=== PATIENT | female | born 1980 | race African-American/Black ===

== ENCOUNTER 2019-07-17 22:41 | Emergency (ER) | payer BC, OTHER ==
[2019-07-17 22:47] VITALS: TEMP 99.2; BMI 26.4
--- NOTE | 2019-07-18 01:05 | PDOC ---
Documentation entered by Irving Hernandez SCRIBE, acting as scribe for Thomas Villalpando MD. Thomas Villalpando MD: This documentation has been prepared by the David merritt Daniel, SCRIBE, under my direction and personally reviewed by me in its entirety. I confirm that the documentation accurately reflects all work, treatment, procedures, and medical decision making performed by me. History of Present Illness - General Chief Complaint: Respiratory Stated Complaint: COLD SYMPTOMS Time Seen by Provider: 07/18/19 00:13 History Source: Patient Exam Limitations: No Limitations - History of Present Illness Initial Comments: 07/18/19 00:46 The patient is a 38 year old female with a past medical history of prior UTIs and mild anemia here today for evaluation of headache and suprapubic pain. The patient reports that she has had a frontal headache worse with head movement, sinus congestion, cough, low back pain, chest pain (secondary to cough), suprapubic pain, subjective fevers 4 days. She reports her headache improves with ibuprofen and states that when she has her back pain she has to pee after. Patient denies headache, vision changes, numbness/tingling/ewakness, lightheadedness. Denies chills. Denies shortness of breath. Denies nausea, vomiting, diarrhea. Allergies: NKDA, shrimp PCP: Dr. Joseluis Booth ([facility]) Past History - Past Medical History Allergies/Adverse Reactions: Allergies Allergy/AdvReac Type Severity Reaction Status Date / Time No Known Drug Allergies Allergy Verified 07/17/19 22:47 shrimp Allergy Verified 07/17/19 22:47 Home Medications: Ambulatory Orders NK [No Known Home Medication] 04/02/16 Anemia: Yes Asthma: Yes ( A CHILD) COPD: No - Psycho Social/Smoking Cessation Hx Smoking History: Never smoked Hx Alcohol Use: Yes (OCCAS) Drug/Substance Use Hx: No Substance Use Type: Alcohol Review of Systems - Review of Systems Able to Perform ROS?: Yes Comments:: 07/18/19 00:47 CONSTITUTIONAL: +subjective fever. +diaphoresis. No reported: Chills, Generalized Weakness, Malaise, Loss of Appetite HEENT: +nasal congestion. No reported: Rhinorrhea, Throat Pain, Throat Swelling, Difficulty Swallowing, Mouth Swelling, Ear Pain, Eye Pain, Visual Changes CARDIOVASCULAR: No reported: Chest Pain, Syncope, Palpitations, Irregular Heart Rate, Lightheadedness, Peripheral Edema RESPIRATORY: +cough No reported: Shortness of Breath, SOB with Exertion, Orthopnea, Wheezing, Stridor, Hemoptysis GASTROINTESTINAL: +suprapubic pain. No reported: Abdominal Distension, Nausea, Vomiting, Diarrhea, Constipation, Melena, Hematochezia GENITOURINARY: No reported: Dysuria, Frequency, Urgency, Hesitancy, Flank Pain, Genital Pain MUSCULOSKELETAL: +low back pain. No reported: Myalgia, Arthralgia, Joint Swelling, Neck Pain SKIN: No reported: Rash, Itching, Pallor HEMEATOLOGIC/IMMUNOLOGIC: No reported: Easy Bleeding, Easy Bruising, Lymphadenopathy, Frequent infections ENDOCRINE: No reported: Unexplained Weight Gain, Unexplained Weight Loss, Heat Intolerance , Cold Intolerance NEUROLOGIC: No reported: Headache, Focal Weakness, Paresthesias, Vertigo, Lightheadedness, Unsteady Gait, Seizure, Mental Status Changes, Incontinence PSYCHIATRIC: No reported: Anxiety, Depression *Physical Exam - Vital Signs Last Vital Signs Temp Pulse Resp BP Pulse Ox 99.2 F 97 H 18 120/64 99 07/17/19 22:43 07/17/19 22:43 07/17/19 22:43 07/17/19 22:43 07/17/19 22:43 - Physical Exam 07/18/19 00:48 GENERAL: The patient is awake, alert, and fully oriented, Nontoxic - in no acute distress. HEAD: Normocephalic, atraumatic. EYES: extraocular movements intact, sclera anicteric, conjunctiva clear. ENT: Normal voice, Moist mucous membranes. NECK: Normal range of motion, supple LUNGS: Breath sounds equal, clear to auscultation bilaterally. No wheezes, no rhonchi, no rales. HEART: Regular rate and rhythm, without murmur, rub or gallop. ABDOMEN: Soft, nontender, No guarding, no rebound.No CVA tenderness EXTREMITIES: Normal range of motion, no edema. No cyanosis. No erythema, or tenderness. BACK: mild lowe bcK TENDERNESS NEUROLOGICAL: No facial assymetry, Normal speech, PSYCH: Normal mood, normal affect. SKIN: Warm, Dry, normal turgor Medical Decision Making - Medical Decision Making 07/18/19 00:55 38-year-old female presenting with URI-like symptoms, as well as mild dysuria, and lower back pain without any CVA tenderness. We will give the patient Sudafed for her congestion. No clinical signs of meningitis or acute headache. Will obtain a UA to rule out UTI there is no signs of CVA tenderness to suggest a pyelonephritis her pain is lower may be muscular in nature 07/18/19 01:44 The patient's urine is negative for UTI there are some ketones likely secondary to starvation as patient has not eaten. There is no signs of glucosuria to suggest DKA. Will discharge patient with outpatient follow-up Return precautions were discussed I discussed the physical exam findings, ancillary test results and final diagnoses with the patient. I answered all of the patient's questions. The patient was satisfied with the care received and felt comfortable with the discharge plan and treatment plan. The patient will call their primary care physician within 24 hours to arrange follow-up and will return to the Emergency Department with any new, persistent or worsening symptoms. Discharge - Discharge Information Problems reviewed: Yes Clinical Impression/Diagnosis: Upper respiratory infection Qualifiers: URI type: acute nasopharyngitis (common cold) Qualified Code(s): J00 - Acute nasopharyngitis [common cold] Condition: Improved Disposition: HOME - Admission No - Follow up/Referral Referrals: [facility] [place] [facility] [place] [Provider Group] - Patient Discharge Instructions Patient Printed Discharge Instructions: DI for Common Cold Additional Instructions: Return to the emergency department immediately with ANY new, persistent or worsening symptoms. You may take Sudafed as needed for your nasal congestion Take Tylenol or Motrin as needed for your body aches and fever. Make sure to stay well-hydrated You MUST call and follow up with your doctor in 4-5 days for further evaluation of your symptoms. Results were discussed with you. Please make sure your doctor reviews the results of your emergency evaluation. Your Emergency Department visit is not complete without a follow up with your doctor. Print Language: TURKMEN - Post Discharge Activity
[2019-07-18 01:34] LABS: URINE APPEARANCE CLEAR; URINE BILIRUBIN NEGATIVE (NEGATIVE); URINE COLOR YELLOW; URINE GLUCOSE (UA) NEGATIVE (NEGATIVE); URINE KETONE 2+ (NEGATIVE); URINE LEUK ESTERASE NEGATIVE (NEGATIVE); URINE NITRITE NEGATIVE (NEGATIVE); URINE PROTEIN NEGATIVE (NEGATIVE)
[2019-07-18 02:07] VITALS: BP 120/60; PULSE 84
== END 2019-07-18 02:14 | disposition home or self-care (01) ==
LOC: SUPCPDRO 22:41 → JER 22:41
DX: J00 Acute nasopharyngitis [common cold] (principal)
CPT/HCPCS: 81003; 84703; 99282-25

== ENCOUNTER 2024-10-01 07:40 | Inpatient (IN) | payer BC, OTHER ==
[2024-10-01] MEDS: ELECTROLYTE-148 SOLN 500 ML IV ONE (08:00)
[2024-10-01] MEDS: ELECTROLYTE-148 SOLN 1,000 ML IV SCH ×2 (09:00→12:22)
[2024-10-01 09:11] VITALS: BMI 32.3
[2024-10-01 09:15] LABS: ABSOLUTE IMMATURE GRANULOCYTES 0.05 x10^3/uL (0.0-0.031); BASOPHILS # 0.02 x10^3/uL (0.01-0.08); EOSINOPHIL % 0.7 % (0.7-5.8); EOSINOPHILS # 0.06 x10^3/uL (0.04-0.36); HEMATOCRIT 29.1 % (34.1-44.9); HEMOGLOBIN 9.6 g/dL (11.2-15.7); MEAN CELL VOLUME 79.3 fl (79.4-94.8); MEAN PLT VOLUME 10.3 fl (9.4-12.3); MONOCYTE # 0.84 x10^3/uL (0.24-0.86); MONOCYTE % 10.2 % (4.7-12.5); PLATELET COUNT 258 x10^3/uL (182-369); RDW 14.2 % (12.2-17.1)
[2024-10-01 09:21] LABS: INR 0.95 (0.83-1.09); PROTHROMBIN TIME (PATIENT) 10.4 SEC (9.7-13.0)
[2024-10-01 09:25] LABS: ACTIVATED PTT 24.3 SECONDS (25.2-36.5)
[2024-10-01] MEDS ORDERED: FAMOTIDINE 20 MG/50 ML IVPB 20 MG/50 ML MG IVPB ONE (09:31)
[2024-10-01] MEDS: FAMOTIDINE 20 MG/50 ML IVPB 20 MG/50 ML MG IVPB ONE (09:35)
[2024-10-01] MEDS: CITRIC ACID/SODIUM CITRATE 30 ML UNIT-DOSE CUP PO ONE (09:40)
[2024-10-01 09:47] LABS: POTASSIUM 4.3 mmol/L (3.5-5.1)
[2024-10-01] MEDS ORDERED: FENTANYL CITRATE/PF 50 MCG/ML VIAL ONE (09:52)
[2024-10-01] MEDS ORDERED: morphine SULFATE/PF 1 MG/2 ML (2cc Syringe - QUVA) ONE (09:52)
[2024-10-01 09:53] LABS: BLOOD UREA NITROGEN 15.4 mg/dL (7-18); CALCIUM 9.7 mg/dL (8.5-10.1)
[2024-10-01 09:56] LABS: CREATININE 0.8 mg/dL (0.55-1.3)
[2024-10-01] MEDS ORDERED: ONDANSETRON 4 MG/2 ML VIAL ONE (10:01)
[2024-10-01] MEDS ORDERED: BUPIVACAINE HCL/PF 0.5% (5MG/ML) 10 ML VIAL ONE (10:22)
[2024-10-01] MEDS ORDERED: OXYTOCIN 10 UNITS/ML VIAL ONE (10:35)
[2024-10-01] MEDS ORDERED: METHYLERGONOVINE MALEATE 0.2 MG/1 ML AMP IM PRN (10:59)
[2024-10-01 11:19] LABS: CORD BASE EXCESS -6.6 mmol/L (0-2); CORD HCO3 22.8 mmHg (20-29); CORD PCO2 62.1 mmHg (30-78); CORD pH 7.183 (7.14-7.44)
[2024-10-01] MEDS: OXYTOCIN 20 UNITS in 0.9% NS 20 UNIT/1,000 ML INFUS.BAG IV SCH (11:20)
[2024-10-01] MEDS ORDERED: OXYTOCIN 20 UNITS in 0.9% NS 20 UNIT/1,000 ML INFUS.BAG IV ONE (11:22)
[2024-10-01 11:25] LABS: CORD BASE EXCESS -3.7 mmol/L (0-2); CORD HCO3 22.2 mmHg (20-29); CORD PCO2 43.2 mmHg (30-78); CORD pH 7.329 (7.14-7.44)
[2024-10-01] MEDS ORDERED: KETOROLAC TROMETHAMINE 30 MG/1 ML VIAL ONE (12:00)
[2024-10-01] MEDS: KETOROLAC TROMETHAMINE 30 MG/1 ML VIAL IVPUSH ONE (12:05)
[2024-10-01] MEDS ORDERED: ACETAMINOPHEN INJECTION 100 ML ONE (12:10)
[2024-10-01] MEDS: ACETAMINOPHEN 1000 MG/100 ML BAG IVPB ONE (12:15)
[2024-10-01 14:11] LABS: HIV INTERPRETATION NEGATIVE (NEGATIVE)
[2024-10-01] MEDS: IBUPROFEN 800 MG/8 ML IJ IVPB PRN (14:18)
[2024-10-01] MEDS: ACETAMINOPHEN 1000 MG/100 ML BAG IVPB SCH (18:05)
[2024-10-01] MEDS ORDERED: oxyCODONE HCL 5 MG TABLET PO PRN ×2 (22:59)
[2024-10-02] MEDS: SIMETHICONE 80 MG TAB.CHEW (FP) PO PRN (04:55)
[2024-10-02] MEDS: IBUPROFEN 600 MG TABLET (FP) PO PRN (04:55)
[2024-10-02 07:44] LABS: ABSOLUTE IMMATURE GRANULOCYTES 0.03 x10^3/uL (0.0-0.031); BASOPHILS # 0.02 x10^3/uL (0.01-0.08); EOSINOPHIL % 1.5 % (0.7-5.8); EOSINOPHILS # 0.13 x10^3/uL (0.04-0.36); HEMATOCRIT 24.7 % (34.1-44.9); HEMOGLOBIN 8.3 g/dL (11.2-15.7); MCHC 33.6 g/dl (32.2-35.5); MEAN CELL VOLUME 77.9 fl (79.4-94.8); MEAN PLT VOLUME 9.6 fl (9.4-12.3); MONOCYTE # 0.57 x10^3/uL (0.24-0.86); MONOCYTE % 6.7 % (4.7-12.5); PLATELET COUNT 200 x10^3/uL (182-369); RDW 14.1 % (12.2-17.1)
[2024-10-02] MEDS: ACETAMINOPHEN 325 MG TABLET (FP) PO PRN (09:50)
[2024-10-02] MEDS: PRENATAL VITAMINS W/ FOLIC ACID TABLET (FP) PO SCH (09:51)
[2024-10-02] MEDS ORDERED: BISACODYL 10 MG SUPP.RECT RC PRN (10:59)
[2024-10-02] MEDS: FERROUS SO4 325 MG TABLET (FP) PO SCH (13:16)
[2024-10-02] MEDS: SENNOSIDES/DOCUSATE COMBO (SENNA PLUS) TABLET (UD) PO PRN (19:42)
[2024-10-03 22:39] VITALS: RESP 18
[2024-10-04 07:41] LABS: ABSOLUTE IMMATURE GRANULOCYTES 0.04 x10^3/uL (0.0-0.031); BASOPHILS # 0.02 x10^3/uL (0.01-0.08); EOSINOPHIL % 2.6 % (0.7-5.8); HEMATOCRIT 23.9 % (34.1-44.9); HEMOGLOBIN 7.9 g/dL (11.2-15.7); MCHC 33.1 g/dl (32.2-35.5); MEAN CELL VOLUME 79.1 fl (79.4-94.8); MONOCYTE # 0.56 x10^3/uL (0.24-0.86); MONOCYTE % 7.3 % (4.7-12.5); PLATELET COUNT 208 x10^3/uL (182-369); RDW 13.8 % (12.2-17.1)
[2024-10-04 09:53] VITALS: BP 120/71; PULSE 84; TEMP 98.3
== END 2024-10-04 13:00 | disposition home or self-care (01) | DRG 788 ==
LOC: JLDR 07:40 → J3W 13:40
PROVIDERS: ADMIT Obstetrics & Gynecology; ATTEND Obstetrics & Gynecology
PROC: 10D00Z1 Extraction of Products of Conception, Low, Open Approach (ICD-10-PCS; principal; 2024-10-01)
DX: O82 Encounter for cesarean delivery without indication (principal); Z3A.38 38 weeks gestation of pregnancy; Z37.0 Single live birth
CPT/HCPCS: 36415; 36600; 80048; 82803; 85025; 85610; 85730; 86780; 86850; 86900; 86901; 87389; 88307-TC; 94010; J0131